=== PATIENT | male | born 1960 | race Caucasian/White ===

== ENCOUNTER 2019-03-26 16:52 | Emergency (ER) | payer OTHER ==
[~2019-03-26] VITALS: Ht 188 cm; Wt 111.1 kg
[2019-03-26 17:03] VITALS: BP_SYST 136
--- NOTE | 2019-03-26 18:00 | NUR ---
Patient to ER bed 2 to gown for evaluation. Side rails up.
--- NOTE | 2019-03-26 18:05 | NUR ---
ER at bedside examining patient.
[2019-03-26] MEDS ORDERED: NACL 0.9% 1,000 ML IV ONE (18:09)
[2019-03-26] MEDS ORDERED: ASPIRIN 81 MG TAB.CHEW PO ONE (18:15)
--- NOTE | 2019-03-26 18:15 | NUR ---
Patient presented to ER C/O Chest pain. Patient A&Ox4, skin pink and warm, afebrile, ambulatory to ER, arrive with . Patient states he had chest tightness around 1200. Patient states he was "partying last night" and had 4 margaritas and then this morning had 4 mimosas for breakfast, Patient denies cardiac hx, and sees PMD regularly.
[2019-03-26] MEDS ORDERED: LORazepam 2 MG/ML VIAL IVP ONE (18:30)
[2019-03-26 19:08] LABS: BASOPHILS % (AUTO) 0.1 % (0.0-2.0); EOSINOPHILS % (AUTO) 0.4 % (0.0-4.0); HEMATOCRIT 46.6 % (36-54); HEMOGLOBIN 16.4 g/dL (14.0-18.0); LYMPHOCYTES # (AUTO) 1.8 K/uL (1.0-5.5); LYMPHOCYTES % (AUTO) 17.1 % (20.5-51.5); MEAN CORPUSCULAR HEMOGLOBIN 32 pg (27-31); MEAN CORPUSCULAR HGB CONC 35 % (32-36); MEAN CORPUSCULAR VOLUME 91 fL (79.0-98.0); MONOCYTES # (AUTO) 0.8 K/uL (0.0-1.0); MONOCYTES % (AUTO) 7.9 % (1.7-9.3); NEUTROPHILS # (AUTO) 7.7 K/uL (1.8-7.7); NEUTROPHILS % (AUTO) 74.5 % (40.0-70.0); PLATELET COUNT (AUTO) 180 K/uL (130-430); RED BLOOD CELL COUNT(AUTO) 5.14 MIL/uL (4.2-6.2); RED CELL DISTRIBUTION WIDTH 13.3 % (9.0-15.0); WHITE BLOOD COUNT (AUTO) 10.4 K/uL (4.8-10.8)
--- NOTE | 2019-03-26 19:15 | NUR ---
Report to Teresa NADREWS
--- NOTE | 2019-03-26 19:18 | NUR ---
RECEIVED REPORT FROM LIU ANDREWS. PATIENT [id number], SPOUSE AT BEDSIDE, AT PRESENT PATIENT VOICES NO C/O C/P OR DISCOMFORT. PENDING RE-EVAL AND DISPOSITION.
[2019-03-26 19:28] LABS: ANION GAP 10 (5-15); CALCIUM 9.2 mg/dL (8.4-11.0); CHLORIDE 98 mmol/L (98-107); CREATININE 0.91 mg/dL (0.55-1.30); GLUCOSE 102 mg/dL (70-99); POTASSIUM 3.1 mmol/L (3.5-5.1); SODIUM SERUM 136 mmol/L (136-145); UREA NITROGEN, BLOOD 14 mg/dL (8-21)
[2019-03-26 19:32] LABS: GFR AFRICAN AMERICAN 111 mL/min (>90)
[2019-03-26 19:36] LABS: ALANINE AMINOTRANSFERASE 26 U/L (12-78); ALBUMIN 4.1 g/dL (3.4-4.8); ASPARTATE AMINOTRANSFERASE 18 U/L (10-37); TOTAL BILIRUBIN 1.2 mg/dL (0.0-1.0)
--- NOTE | 2019-03-26 21:30 | NUR ---
PATIENT RESTING QUIETLY VOICES NO C/O C/P, NAD. SPOUSE AT BEDSIDE. SEEN BY DR HSIEH.
[2019-03-26 22:00] VITALS: BP_SYST 115
--- NOTE | 2019-03-26 22:00 | NUR ---
Patient given written and verbal discharge instructions and verbalizes understanding. ER MD discussed with patient the results and treatment provided. Patient in stable condition. ID arm band removed. IV catheter removed intact and dressing applied, no active bleeding.Rx of Ativan given. Patient educated on pain management and to follow up with PMD. Pain Scale 0/10. Opportunity for questions provided and answered.
== END 2019-03-26 22:00 | disposition home or self-care (01) ==
LOC: SED 16:52
DX: F41.9 Anxiety disorder, unspecified (principal); R07.9 Chest pain, unspecified; I10 Essential (primary) hypertension; E78.00 Pure hypercholesterolemia, unspecified
CPT/HCPCS: 36415; 71045; 80053; 84484; 85025; 93005; 96374; 99284; J2060; J7030

== ENCOUNTER 2020-01-18 17:18 | Emergency (ER) | payer OTHER ==
[~2020-01-18] VITALS: Ht 188 cm; Wt 102.5 kg
--- NOTE | 2020-01-18 17:24 | NUR ---
Patient to ER bed 4 to gown for evaluation. Side rails up. Report given to EDWIN.
[2020-01-18 17:25] VITALS: BP_SYST 141
--- NOTE | 2020-01-18 17:25 | NUR ---
MAYO TO ASSUME CARE, RECEIVED AND IN ROOM, CALM, ALERT, RESP UNLABORED, SKIN WARM AND DRY. PLACED ON MONITOR , EKG COMPLETED.
[2020-01-18] MEDS ORDERED: ASPIRIN 325 MG TABLET PO ONE (17:30)
[2020-01-18] MEDS ORDERED: NITROGLYCERIN 0.4 MG TAB.SUBL SL ONE (17:30)
--- NOTE | 2020-01-18 17:36 | NUR ---
DR XIAO IN TO ASSESS
--- NOTE | 2020-01-18 17:37 | NUR ---
DENIES CP/SOB, C/O INTERMITTENT EPIGASTRIC PAIN. NO DISTRESS, COMMUNICATES CLEARLY IN FULL COMPLETE SENTENCES
[2020-01-18] MEDS ORDERED: LIP40 PO (17:42)
[2020-01-18] MEDS ORDERED: IRBE150T48 PO (17:42)
[2020-01-18] MEDS ORDERED: DILT120C89 PO (17:43)
[2020-01-18] MEDS ORDERED: ASPI-1155 PO (17:44)
--- NOTE | 2020-01-18 17:44 | NUR ---
CXR IN PROGRESS
[2020-01-18] MEDS ORDERED: LORA-258 PO (17:45)
[2020-01-18 18:05] LABS: BASOPHILS % (AUTO) 0.2 % (0.0-2.0); EOSINOPHILS % (AUTO) 0.4 % (0.0-4.0); HEMATOCRIT 47.3 % (36-54); HEMOGLOBIN 16.6 g/dL (14.0-18.0); LYMPHOCYTES % (AUTO) 21.3 % (20.5-51.5); MEAN CORPUSCULAR HEMOGLOBIN 32 pg (27-31); MEAN CORPUSCULAR HGB CONC 35 % (32-36); MEAN CORPUSCULAR VOLUME 90 fL (79.0-98.0); MONOCYTES # (AUTO) 0.7 K/uL (0.0-1.0); MONOCYTES % (AUTO) 7.5 % (1.7-9.3); NEUTROPHILS # (AUTO) 6.8 K/uL (1.8-7.7); NEUTROPHILS % (AUTO) 70.6 % (40.0-70.0); PLATELET COUNT (AUTO) 162 K/uL (130-430); RED BLOOD CELL COUNT(AUTO) 5.25 MIL/uL (4.2-6.2); RED CELL DISTRIBUTION WIDTH 13.5 % (9.0-15.0); WHITE BLOOD COUNT (AUTO) 9.6 K/uL (4.8-10.8)
--- NOTE | 2020-01-18 18:25 | NUR ---
SR ON MONITOR NO ECTOPY. DENIES CP/SOB. SKIN WARM AND DRY
[2020-01-18 18:27] LABS: SODIUM SERUM 132 mmol/L (136-145)
[2020-01-18 18:28] LABS: ANION GAP 9 (5-15); ASPARTATE AMINOTRANSFERASE 20 U/L (10-37); CALCIUM 8.8 mg/dL (8.4-11.0); CHLORIDE 98 mmol/L (98-107); CREATININE 0.79 mg/dL (0.55-1.30); GFR AFRICAN AMERICAN 130 mL/min (>90); GLUCOSE 100 mg/dL (70-99); POTASSIUM 3.3 mmol/L (3.5-5.1); TOTAL BILIRUBIN 1.6 mg/dL (0.0-1.0); UREA NITROGEN, BLOOD 11 mg/dL (8-21)
[2020-01-18 18:29] LABS: ALANINE AMINOTRANSFERASE 29 U/L (12-78); ALBUMIN 4.1 g/dL (3.4-4.8)
[2020-01-18 19:37] VITALS: BP_SYST 118
== END 2020-01-18 18:35 | disposition home or self-care (01) ==
LOC: SED 17:18
DX: R07.89 Other chest pain (principal)
CPT/HCPCS: 36415; 71045; 80053; 84484; 85025; 93005; 99285